=== PATIENT | male | born 1995 | race Caucasian/White ===

== ENCOUNTER 2022-01-08 12:00 | Emergency (ER) | payer SELFPAY ==
[~2022-01-08] VITALS: Ht 170.2 cm; Wt 88.9 kg
[2022-01-08 12:10] VITALS: BP 140/69
--- NOTE | 2022-01-08 12:13 | NUR ---
26 y/o male, c/o left foot pain this morning around 0400, pt states he walked out of bed and felt something push into his skin. pt has puncture wound on back of left heel, states he is unable to figure out what he may have stepped on. 0/10 now, 10/10 pain with ambulation. pmh: denies allergy: banana (hives, swelling) med: denies
--- NOTE | 2022-01-08 12:18 | NUR ---
pt taken to xray via wheelchair at this time
--- NOTE | 2022-01-08 13:10 | NUR ---
PT AMB TO ER BED 2
[2022-01-08] MEDS ORDERED: LIDOCAINE MPF 2% 100 MG/5 ML VIAL INJ ONE (13:20)
[2022-01-08] MEDS ORDERED: LIDOCAINE 2% 1000 MG/50 ML VIAL INJ ONE (13:52)
[2022-01-08] MEDS ORDERED: BACI1PAC6 TP (15:00)
[2022-01-08] MEDS ORDERED: IBUP-2213 PO (15:01)
--- NOTE | 2022-01-08 15:07 | NUR ---
PT'S WOUND CLEANED WITH WARM WATER AND DRESSED WITH NON-ADHERENT GAUZE PAD AND WRAPPED WITH 4" GAUZE ROLL.
[2022-01-08 15:15] VITALS: BP 114/75
--- NOTE | 2022-01-08 15:15 | NUR ---
Patient discharged with v/s stable. Written and verbal after care instructions given and explained. Patient verbalized understanding. Ambulatory with steady gait. All questions addressed prior to discharge. Advised to follow up with PMD.
== END 2022-01-08 15:15 | disposition home or self-care (01) ==
LOC: MED 12:00
DX: S90.852A Superficial foreign body, left foot, initial encounter (principal); Z91.018 Allergy to other foods; Z79.899 Other long term (current) drug therapy; W45.8XXA Other foreign body or object entering through skin, initial encounter; Y93.89 Activity, other specified; Y92.89 Other specified places as the place of occurrence of the external cause; Y99.8 Other external cause status
CPT/HCPCS: 10120; 73630; 99285; J2001; 99284